=== PATIENT | female | born 1970 | race Two or more races ===

== ENCOUNTER → 2018-09-19 | Outpatient (CLI) | payer OTHER ==
[~2018-09-19] MED LIST: LISI10TA2 PO; METF500T16 PO; NORE0.355 PO; OXYC1TAB15 PO
[2018-09-19 15:57] LABS: BILIRUBIN,URINE NEGATIVE (NEG); CLARITY,URINE CLEAR; COLOR,URINE YELLOW; NITRITE,URINE NEGATIVE (NEG); PROTEIN,URINE NEGATIVE (NEG-TRACE); UROBILINOGEN,URINE 0.2 mg/dL (0.2 mg/dL)
[2018-09-19 15:59] LABS: BASO # 0.1 x10^3/uL (0.0-0.2); BASO % 1 % (0-3); EOS # 0.1 x10^3/uL (0.0-0.7); EOS % 2 % (0-3); HEMATOCRIT 41.1 % (36.0-47.0); HEMOGLOBIN 13.8 g/dL (12.0-15.5); LYMPH # 3.1 x10^3/uL (1.0-4.8); LYMPH % 33 % (24-48); MEAN CORPUSCULAR HEMOGLOBIN 30 pg (25-35); MEAN CORPUSCULAR HGB CONC 34 g/dL (31-37); MEAN CORPUSCULAR VOLUME 90 fL (79-100); MONO # 0.5 x10^3/uL (0.0-1.1); MONO % 6 % (0-9); NEUT # 5.5 x10^3uL (1.8-7.7); NEUT % 59 % (31-73); PLATELET COUNT 312 x10^3/uL (140-400); RED BLOOD COUNT 4.58 x10^6/uL (3.50-5.40); RED CELL DISTRIBUTION WIDTH 12.9 % (11.5-14.5); WHITE BLOOD COUNT 9.3 x10^3/uL (4.0-11.0)
[2018-09-19 16:14] LABS: SQUAMOUS EPITHELIAL CELL,UR MANY /LPF
[2018-09-19 16:15] LABS: BACTERIA,URINE MANY /HPF (0-FEW); RBC,URINE OCC /HPF (0-2)
[2018-09-19 16:17] LABS: ALBUMIN 3.9 g/dL (3.4-5.0); CALCIUM 8.8 mg/dL (8.5-10.1); CREATININE 0.8 mg/dL (0.6-1.0); GFR 76.6; POTASSIUM 3.7 mmol/L (3.5-5.1); TOTAL BILIRUBIN 0.7 mg/dL (0.2-1.0); TOTAL PROTEIN 7.7 g/dL (6.4-8.2)
--- NOTE | 2018-09-19 16:33 | RAD ---
CHEST PA LATERAL History: PRE OP CXR, HX OF HYPERTENTION Comparison: None. Findings: The cardiomediastinal silhouette is normal. Pulmonary vasculature is normal. The lungs are clear. No pleural effusion or pneumothorax is seen. There is no acute bone abnormality. IMPRESSION: No acute cardiopulmonary process. Electronically signed by: Dm Farrell MD (09/19/2018 4:30 PM) [facility]
--- NOTE | 2018-09-19 16:34 | EKG ---
[facility] [address] [place] [address] Test Date: 2018-09-19 Test Time: 16:30:23 Pat Name: BERNICE GREGG Department: Room: Gender: F Metallurgical Or Materials Technician: TIAN : 1970 Requested By: NEHA PARTIDA Order Number: [id number] Reading MD: Acosta Hall MD Measurements Intervals [place] Rate: 90 P: 26 [place]: 134 QRS: -4 QRSD: 84 T: 11 QT: 372 QTc: 459 Interpretive Statements SINUS RHYTHM Electronically Signed On 09-20-2018 11:51:05 CDT by Acosta Hall MD
--- NOTE | 2018-09-24 18:22 | NUR ---
FAXED PRE - OP TEST REPORTS TO 'S OFFICE FOR REVIEW 09/20/2018 AT 4634 WITH A NOTE THAT EKG REPORT WAS REVIEWED BY ALMA CANELA RN,ANESTHESIA TEAM AND WAS OKAY. URINE CULTURE'S FINAL REPORT WAS FAXED TO 'S OFFICE 09/21/2018 AT 7182.
== END | disposition home or self-care (01) ==
LOC: SURGPAT 15:21
PROVIDERS: ATTEND Obstetrics & Gynecology
DX: Z01.818 Encounter for other preprocedural examination (principal); I10 Essential (primary) hypertension
CPT/HCPCS: 36415; 71046; 80053; 81001; 85025; 87086; 93005

== ENCOUNTER 2018-09-26 05:47 | Observation (INO) | payer OTHER ==
[2018-09-26] VITALS (7 sets, daily range): BP systolic 107–113; BP diastolic 67–73
[~2018-09-26] VITALS: Ht 165.1 cm; Wt 106.6 kg
[~2018-09-26 05:47] MED LIST changes: +BUPIVACAINE-EPI 0.25%-1:200000 MPF 30 ML VIAL. ONE; +ESTROGENS, CONJ VAGINAL CREAM 30GM TUBE. ONE
[2018-09-26] MEDS ORDERED: IV RINGERS,LACTATED 1000ML 1,000 ML IV SCH ×2 (06:06→09:49)
[2018-09-26] MEDS ORDERED: MIDAZOLAM HCL/PF 2 MG/2 ML VIAL. IV PRN (06:15)
[2018-09-26] MEDS ORDERED: fentaNYL PF VIAL 100 MCG/2 ML VIAL IV PRN ×4 (06:15→10:00)
[2018-09-26] MEDS ORDERED: LIDOCAINE 1% PF 2 ML VIAL. ID PRN ×2 (06:15→10:00)
[2018-09-26] MEDS ORDERED: LIDOCAINE 2% PF 5 ML VIAL. ONE (07:00)
[2018-09-26] MEDS ORDERED: ONDANSETRON PF 4 MG/2 ML VIAL. ONE (07:00)
[2018-09-26] MEDS ORDERED: INDIGOTINDISULFONATE SODIUM 40 MG/5 ML AMPUL. IV ONE (07:00)
[2018-09-26] MEDS ORDERED: PROPOFOL 20 ML IV ONE (07:00)
[2018-09-26] MEDS ORDERED: DEXAMETHASONE SOD PHOS 20 MG/5 ML VIAL. ONE (07:00)
[2018-09-26] MEDS ORDERED: ROCURONIUM 50 MG/5 ML VIAL. ONE (07:00)
[2018-09-26] MEDS ORDERED: MIDAZOLAM HCL/PF 2 MG/2 ML VIAL. ONE (07:19)
[2018-09-26] MEDS ORDERED: fentaNYL PF VIAL 100 MCG/2 ML VIAL ONE ×2 (07:20→09:12)
[2018-09-26 07:23] LABS: U PREG PATIENT NEGATIVE (NEG)
[2018-09-26] MEDS ORDERED: KETOROLAC 30 MG/ML INJ FOR OR. INJ ONE (07:53)
[2018-09-26] MEDS ORDERED: GLYCOPYRROLATE 1 MG/5 ML VIAL. ONE (08:35)
[2018-09-26] MEDS ORDERED: NEOSTIGMINE METHYLSULFATE 5 MG/5 ML SYRINGE. ONE (08:35)
[2018-09-26] MEDS ORDERED: SEVOFLURANE 61 TO 120 MINUTES. IH ONE (08:53)
[2018-09-26] MEDS: LISINOPRIL 10 MG TABLET PO SCH (09:00)
[2018-09-26] MEDS ORDERED: diphenhydrAMINE 50 MG/ML VIAL IV PRN (09:30)
[2018-09-26] MEDS ORDERED: MAG HYDROX/ALUMINUM HYD/SIMETH 30 ML ORAL.SUSP PO PRN (09:30)
[2018-09-26] MEDS ORDERED: 0.9 % SODIUM CHLORIDE 10 ML DISP.SYRIN. IV PRN (09:30)
[2018-09-26] MEDS ORDERED: oxyCODONE/APAP 5/325 1 TAB TABLET PO PRN (09:30)
[2018-09-26] MEDS ORDERED: SIMETHICONE 80 MG TAB.CHEW PO PRN (09:30)
[2018-09-26] MEDS ORDERED: LACTULOSE 20 GM/30 ML SOLUTION. PO PRN (09:30)
[2018-09-26] MEDS ORDERED: ZOLPIDEM 5 MG TABLET. PO PRN (09:30)
[2018-09-26] MEDS ORDERED: MORPHINE SULFATE 4 MG/ML VIAL. IV PRN (09:30)
[2018-09-26] MEDS ORDERED: CALCIUM CARBONATE 500 MG TAB.CHEW PO PRN (09:30)
[2018-09-26] MEDS ORDERED: ONDANSETRON PF 4 MG/2 ML VIAL. IV PRN ×2 (09:30→10:00)
[2018-09-26] MEDS ORDERED: METOCLOPRAMIDE HCL 10 MG/2 ML VIAL. IV PRN (09:30)
[2018-09-26] MEDS ORDERED: diphenhydrAMINE HCL 25 MG CAPSULE PO PRN (09:30)
[2018-09-26] MEDS ORDERED: KETOROLAC 30 MG/ML VIAL. IV PRN (09:30)
[2018-09-26] MEDS ORDERED: NALOXONE 0.4 MG/ML VIAL. IV PRN (09:30)
[2018-09-26] MEDS ORDERED: MAGNESIUM HYDROXIDE 2,400 MG/30 ML ORAL.SUSP. PO PRN (09:30)
--- NOTE | 2018-09-26 09:35 | PDOC ---
BRIEF OPERATIVE NOTE Date: Sep 26, 2018 Pre-Op Diagnosis menorrhagia, dysmenorrhea, enlarged fibroid uterus Post-Op Diagnosis same Procedure Performed LAVH/BSO Surgeon Dr. Kennedi Partida Workers' Compensation Claims Examiner Siomna Barbosa Anesthesiologist Dr. Glynn Anesthesia Type: General Blood Loss 50cc IV Fluid 900cc Urine Output 75cc clear Specimens Obtained cervix, uterus, bilateral tubes and ovaries Findings enlarged fibroid uterus, mild bladder adhesions from previous c/s, small cyst on left ovary, normal bilateral tubes Complications none Operative Note [id number] KENNEDI PARTIDA MD Sep 26, 2018 09:35
[2018-09-26] MEDS ORDERED: MORPHINE SULFATE 2 MG/ML VIAL. IV PRN (10:00)
[2018-09-26] MEDS ORDERED: HYDROmorphone 2 MG/ML VIAL IV PRN (10:00)
[2018-09-26] MEDS ORDERED: PROCHLORPERAZINE 10 MG/2 ML VIAL. IV PRN (10:00)
--- NOTE | 2018-09-26 10:17 | OP ---
DATE OF SURGERY: 09/26/2018 PREOPERATIVE DIAGNOSES: Menorrhagia, dysmenorrhea, enlarged fibroid uterus. POSTOPERATIVE DIAGNOSES: Menorrhagia, dysmenorrhea, enlarged fibroid uterus. PROCEDURE: Laparoscopic-assisted vaginal hysterectomy, bilateral salpingo-oophorectomy. SURGEON: Neha Alvarez MD FLOOR SWEEPER: Ilsa Bishop. ANESTHESIOLOGIST: Dr. Glynn. ANESTHESIA: General. URINE OUTPUT: 75 mL clear via Rangel catheter. IV FLUIDS: 900 mL of crystalloid. ESTIMATED BLOOD LOSS: 50 mL. SPECIMENS: Cervix, uterus, bilateral tubes and ovaries. FINDINGS: A mildly enlarged fibroid uterus. Mild bladder adhesions from prior section, small cyst on the left ovary. Normal bilateral tubes. COMPLICATIONS: None. DESCRIPTION OF PROCEDURE: This patient was taken to the operating room where general anesthesia was placed. The patient was placed in a dorsal lithotomy position in [facility]. The patient's abdomen and vagina were prepped and draped in the normal sterile fashion. A Rangel catheter was inserted under sterile technique. Upon my arrival, a timeout was performed where everything was agreed upon, and she had already received her IV antibiotics. At this point, a bivalve speculum was placed in the patient's vagina. A single-tooth tenaculum was used to grasp the anterior lip of the cervix. A 10 mL of 0.25% Marcaine with epinephrine was used to circumferentially inject around the cervix for both hemodissection and hemostatic purposes later. The Valtchev uterine manipulator was placed through the endocervical os, locked on the single tooth tenaculum and the bivalve speculum was then removed. Top gloves were discarded and changed. Attention was then turned to the abdomen, where a supraumbilical skin incision was placed. A curved Juliette was used to dissect through the subcuticular layer to the fascia. The 5 mm Visiport was used to directly into the abdominal cavity. Opening patient pressure was 5 mmHg. Carbon dioxide gas was used to then appropriately insufflate the abdominal cavity to maintain a pressure of 15 mmHg. Direct abdominal placement was confirmed via the laparoscope. Overhead lights were dimmed. The patient was placed in Trendelenburg position. At this point, the left lower quadrant and right lower quadrant ports were placed after transilluminating the abdomen, finding an area clear of any vasculature. It was all clear on the inside. No adhesive disease present, making a small incision and placing the 5 mm disposable blunt trocar through without difficulty. Both of these were filled with 4-5 mL of air in the trocar cuff. Once this was done, the camera was moved to one of the lateral ports to look at the umbilical port, and so this one was pushed in further and a 4-5 mL of air was placed in this trocar cuff as well. The camera was moved back to midline. The left tube and ovary were elevated. The left ureter was seen coursing kind of high on the mid area, but definitely below the IP ligament and ovary where we were going to be, but I definitely identified it. I stayed high on the IP ligament, right under the ovary, cauterizing and cutting with the LigaSure, going over to the uterus and then down through the round as well on this side, right on the uterus. Once this was done, this was done exactly the same on the right side. The ureter was very low on the right side and in a normal position low. So staying high on the IP ligament just under the ovary, cauterizing and cutting again taking it over, getting the tube and ovary to the uterus and get the round ligament on this side. Once the round ligament was done, I started the bladder flap, and it was elevated with the [place] in front, while the uterus was pushed cephalad and the monopolar hook was used to sharply take down the bladder flap. There were some mild adhesions unguessing from her prior section, but it did come down very nicely in the front. Once the bladder was down, the LigaSure was used to cauterize the patient's right uterine vessels and then hugging the cervix and going down through the cardinal and broad ligaments to the level of the uterosacral. Once we were through the round on the left, I stayed right on the cervix, tagged it and got the uterine vessels on the left as well and then staying vertical going down through the cardinal and broad ligaments. The uterus was completely free front and back. The bladder was down and it was completely blanched. So at this point, all instruments were removed from the abdomen and attention was turned vaginally. The single tooth and Valtchev were removed. A weighted speculum was placed in the patient's vagina. The legs were elevated. Thyroid Manuela clamps were placed on the anterior and posterior lips of the cervix respectively. A scalpel was used to make a circumferential incision in the cervix. An open Ray-Ben 4 x 4 was used to gently push up the anterior bladder peritoneum. The cervix was elevated, and the posterior cul-de-sac was sharply entered with the curved Mas scissors. A #0 Vicryl stitch was used to secure the posterior peritoneum to the vaginal cuff here in the posterior cuff, and it was tagged with a curved Juliette clamp. The needle was cut and passed off. The short weighted speculum was removed and replaced with the long weighted vaginal Candelario speculum in the posterior cul-de-sac. Curved Beatriz clamps x 2 were placed on the patient's left uterosacral ligament where they were doubly clamped with curved Heaneys, cut with Mas scissors and suture ligated x 2 with 0 Vicryl. Second one was taken through the vaginal cuff, securing uterosacral ligament to the vaginal cuff and it was tagged with a straight Juliette clamp. This was done exactly the same on the patient's right side, double clamping the uterosacrals with curved Beatriz's, cutting with Mas scissors, suture ligating x 2 with 0 Vicryl, taking the second one through the vaginal cuff, securing uterosacral ligament to the vaginal cuff and tagging it with a straight Juliette clamp. Once this was done, the right angle clamp was taken around the remaining pedicle on the left side, and the vaginal LigaSure was used to cauterize and cut it. This was done exactly the same on the right, taking the right angle Mixter clamp around it and then cauterizing and cutting with the vaginal LigaSure. There was a small pedicle left in the front that I used the cautery and the Metzenbaum scissors on and then it was completely released. Cervix, uterus, bilateral tubes and ovaries were delivered in total and passed off for permanent pathology. A sponge stick was used to examine the pedicles, they appear to be dry and hemostatic. A long Allis was used to grasp the anterior bladder peritoneum. The long weighted vaginal Candelario speculum was removed from the posterior cul-de-sac and replaced with the short weighted vaginal speculum. 2-0 Vicryl was taken through the anterior bladder peritoneum, left uterosacral ligament, posterior peritoneum and right uterosacral ligament, thus closing the peritoneum in a pursestring like fashion. The right and left uterosacral tags were clipped at this point. A full length 2-0 Vicryl was used to close the vaginal cuff in an anterior to posterior running locked fashion and tied to that posterior vaginal cuff tag. An imbricating stitch was placed in the middle. Excellent hemostasis was assured and achieved and the cuff looked good. So at this point, all instruments were removed. All sponge, lap and needle counts were correct x 2 by OR personnel. All gloves were discarded and changed. Attention was turned back above for a second look where the patient was placed back in Trendelenburg. There was complete hemostasis. There was not any bleeding. Copious irrigation confirmed this. Right and left pericolic gutters were clear. The cuff was hemostatic. Tisseel was placed over the cuff with excellent results. The air was released from both of the trocar sites on the right and left lower quadrant ports. These were removed under direct visualization. These too were hemostatic. Gas was then released from the umbilical port. The air was released from the trocar cuff as well, and it was removed. All three port sites were being closed with 4-0 nylon at the skin and injected with local. The patient was awakened from anesthesia, extubated and brought to recovery room in stable condition. NEHA ALVAREZ MD DR: JULIANA/milton JOB#: [id number] / [id number]
[2018-09-26] MEDS: HYDROcodone/APAP 5/325MG 1 TAB TABLET PO PRN ×2 (13:25→19:48)
[2018-09-27 00:41] VITALS: BP 100/65
[2018-09-27] MEDS: HYDROcodone/APAP 5/325MG 1 TAB TABLET PO PRN ×2 (00:47→07:30)
[2018-09-27 06:30] VITALS: BP 124/69
[2018-09-27 08:01] LABS: CALCIUM 8.2 mg/dL (8.5-10.1); CREATININE 1.1 mg/dL (0.6-1.0); POTASSIUM 4.4 mmol/L (3.5-5.1)
[2018-09-27] MEDS: LISINOPRIL 10 MG TABLET PO SCH (09:00)
[2018-09-27 11:52] VITALS: BP 102/68
--- NOTE | 2018-09-27 12:56 | PDOC ---
SURGICAL PROGRESS NOTE Subjective Doing well without complaints. Voiding well without catheter. Tolerating regular diet. ambulating well. All questions answered Vital Signs Vital Signs Date Time Temp Pulse Resp B/P (MAP) Pulse Ox O2 Delivery O2 Flow Rate FiO2 09/27/18 11:52 85 18 102/68 (79) 98 Room Air 09/27/18 06:30 97.9 97.9 09/26/18 10:03 10 I&O Intake and Output 09/27/18 06:59 Intake Total 2700 ml Output Total 1225 ml Balance 1475 ml Intake Oral 1650 ml IV Total 1050 ml Output Urine Total 1175 ml Estimated Blood Loss 50 ml PATIENT HAS A VANG: No General: Alert, Oriented X3, Cooperative, No acute distress HEENT: Atraumatic Heart: Regular rate Abdomen: Soft, No tenderness, Other (all port sites c/d/i) Extremities: No clubbing, No cyanosis, No edema, No tenderness/swelling Skin: No rashes, No breakdown Neuro: Normal speech Psych/Mental Status: Mental status NL, Mood NL Labs Laboratory Tests Test 09/26/18 06:30 09/27/18 07:27 Urine Test Negative (NEG) Hematocrit 37.3 % (36.0-47.0) Sodium Level 136 mmol/L (136-145) Potassium Level 4.4 mmol/L (3.5-5.1) Chloride Level 100 mmol/L (98-107) Carbon Dioxide Level 27 mmol/L (21-32) Anion Gap 9 (6-14) Blood Urea Nitrogen 17 mg/dL (7-20) Creatinine 1.1 mg/dL (0.6-1.0) Estimated GFR (Cockcroft-Gault) 53.0 Glucose Level 106 mg/dL (70-99) Calcium Level 8.2 mg/dL (8.5-10.1) Laboratory Tests Test 09/27/18 07:27 Hematocrit 37.3 % (36.0-47.0) Sodium Level 136 mmol/L (136-145) Potassium Level 4.4 mmol/L (3.5-5.1) Chloride Level 100 mmol/L (98-107) Carbon Dioxide Level 27 mmol/L (21-32) Anion Gap 9 (6-14) Blood Urea Nitrogen 17 mg/dL (7-20) Creatinine 1.1 mg/dL (0.6-1.0) Estimated GFR (Cockcroft-Gault) 53.0 Glucose Level 106 mg/dL (70-99) Calcium Level 8.2 mg/dL (8.5-10.1) I have reviewed the following labs, vitals, nursing Cardiovascular: No pertinent hx Pulmonary: No pertinent hx GI: No pertinent hx Heme/Onc: No pertinent hx Psych: No pertinent hx Infectious disease: No pertinent hx Endocrine: Other (PCOS) Assessment/Plan POD #1 s/p LAVH/BSO routine po care NPV x 6 weeks light/limited x 2 weeks percocet already has at home NO driving on narcotic pain meds keep scheduled office visit next week ok for OTC ibuprofen, prn call or return sooner for any other questions or concerns not limited to but including pain unrelieved with pain meds, increased or unexplained vaginal bleeding or T>100.4 NEHA PARTIDA MD Sep 27, 2018 12:56
--- NOTE | 2018-09-27 13:00 | PDOC3 ---
Discharge Summary Visit Information Date of Admission: Sep 26, 2018 Date of Discharge: Sep 27, 2018 Final Diagnosis enlarged fibroid uterus with menorrhagia and dysmenorrhea Brief Hospital Course Allergies Allergies Coded Allergies Type Severity Reaction Last Updated Verified No Known Drug Allergies 09/26/18 No Vital Signs Vital Signs Date Time Temp Pulse Resp B/P (MAP) Pulse Ox O2 Delivery O2 Flow Rate FiO2 09/27/18 11:52 85 18 102/68 (79) 98 Room Air 09/27/18 06:30 97.9 97.9 09/26/18 10:03 10 Lab Results Laboratory Tests Test 09/26/18 06:30 09/27/18 07:27 Urine Test Negative (NEG) Hematocrit 37.3 % (36.0-47.0) Sodium Level 136 mmol/L (136-145) Potassium Level 4.4 mmol/L (3.5-5.1) Chloride Level 100 mmol/L (98-107) Carbon Dioxide Level 27 mmol/L (21-32) Anion Gap 9 (6-14) Blood Urea Nitrogen 17 mg/dL (7-20) Creatinine 1.1 mg/dL (0.6-1.0) Estimated GFR (Cockcroft-Gault) 53.0 Glucose Level 106 mg/dL (70-99) Calcium Level 8.2 mg/dL (8.5-10.1) Laboratory Tests Test 09/27/18 07:27 Hematocrit 37.3 % (36.0-47.0) Sodium Level 136 mmol/L (136-145) Potassium Level 4.4 mmol/L (3.5-5.1) Chloride Level 100 mmol/L (98-107) Carbon Dioxide Level 27 mmol/L (21-32) Anion Gap 9 (6-14) Blood Urea Nitrogen 17 mg/dL (7-20) Creatinine 1.1 mg/dL (0.6-1.0) Estimated GFR (Cockcroft-Gault) 53.0 Glucose Level 106 mg/dL (70-99) Calcium Level 8.2 mg/dL (8.5-10.1) Brief Hospital Course Ms. Valdivia is a 48 old female who presented with symtomatic fibroid uterus with menorrhagia and dysmenorrhea desiring definitive therapy. She underwent and LAVH/BSO without complication yesterday. She has had an unremarkable postoperative course and is tolerating a regular diet, voiding without catheter , scant vb, ambulating well and is desiring to go home. Discharge Information Condition at Discharge: Improved Follow Up: Weeks Disposition/Orders: D/C to Home Scheduled Lisinopril (Lisinopril) 10 Mg Tablet, 10 MG PO DAILY for FOR HYPERTENSION, #30 Ref 0 (Reported) Entered as Reported by: CARMELA OVERTON on 09/19/181527 Last Action: Continued on 09/26/18728 by NEHA PARTIDA Metformin Hcl (Metformin Hcl) 500 Mg Tablet, 500 MG PO BIDWMEALS for ANTI- DIABETIC, Ref 0 (Reported) Entered as Reported by: CARMELA OVERTON on 09/19/181527 Last Action: HELD on 09/26/18728 by NEHA PARTIDA Scheduled PRN Norethindrone (Vaishali) 0.35 Mg Tablet, 0.35 MG PO DAILY PRN for ORDERED, ( Reported) Entered as Reported by: CARMELA OVERTON on 09/19/181527 Last Action: HELD on 09/26/18728 by NEHA PARTIDA Oxycodone/Apap 5-325 (Percocet 5-325 Mg Tablet ) 1 Each Tablet, 1 TAB PO PRN Q6HRS PRN for PAIN, Ref 0 (Reported) Entered as Reported by: CARMELA OVERTON on 09/19/181529 Last Action: HELD on 09/26/18728 by NEHA PARTIDA Patient Instructions Patient Instructions POD #1 s/p LAVH/BSO routine po care NPV x 6 weeks light/limited x 2 weeks percocet already has at home NO driving on narcotic pain meds keep scheduled office visit next week ok for OTC ibuprofen, prn call or return sooner for any other questions or concerns not limited to but including pain unrelieved with pain meds, increased or unexplained vaginal bleeding or T>100.4 NEHA PARTIDA MD Sep 27, 2018 13:00
[2018-09-27 14:49] VITALS: BP 106/70
--- NOTE | 2018-09-28 14:06 | PATHOLOGY ---
[facility] Accession Number: [id number] . 01 Material submitted: . uterus - CERVIX, UTERUS, OVARIES, TUBES . 01 Clinical history: . Abnormal bleeding . 02 Diagnosis: Uterus, bilateral ovaries and fallopian tubes, hysterectomy and bilateral salpingo-oophorectomy: - Cervix with mild chronic inflammation, squamous metaplasia, and nabothian cysts. - Proliferative phase endometrium. - Myometrium with leiomyomata, up to 2.9 cm. - Serosal surface with no pathologic diagnosis. - Right and left ovaries and fallopian tubes with no significant histopathologic diagnosis. (SKM/db; 09/28/2018) LBQ/09/28/2018 . 02 Electronically signed: . Kendall Slade MD, Pathologist NPI- [id number] . 01 Gross description: . The specimen is received in formalin, labeled "Valdivia, Brenda, cervix, uterus, ovaries, tubes" and consists of a 148 g distorted uterus with attached cervix measuring 11.3 x 6.6 x 4.9 cm. Attached are bilateral adnexa with the right (9 g) consisting of a fimbriated fallopian tube (5.0 cm in length and 0.5 cm in diameter attached to a acevedo and cerebriform ovary (2.3 x 1.8 x 1.3 cm). The left adnexa consists of a fimbriated fallopian tube (5.8 cm in length and up to 0.6 cm in diameter) attached to a cerebriform, acevedo, and cystic ovary (2.4 x 2.3 x 1.2 cm). The uterine serosa is pink-acevedo with multifocal hemorrhage and subserosal nodules consistent with the uterine distortion. The 1.5 cm slitlike cervical os is surrounded by glistening pink-acevedo ectocervical mucosa. The specimen is bivalved to reveal a corrugated endocervical canal measuring 2.6 cm in length. The endometrial cavity is distorted measuring 4.5 cm in length and up to 3.2 cm in diameter with the distortion caused by multiple submucosal, intramural, and subserosal nodules measuring up to 2.9 cm. The endometrium is pink-acevedo measuring 0.1 cm. The cervix reveals nabothian cysts measuring up to 0.6 cm. The myometrium is pink-acevedo measuring up to 3.0 cm with the nodules showing homogeneous white, whorled cut surfaces without hemorrhage, necrosis, or calcifications. . Both the right and left are rated fallopian tubes are purple-mccartney, smooth, and shiny. Sectioning each reveals a well-defined central lumen and with the left tube having a hemorrhagic paratubal cystic structure measuring up to 0.9 cm. Sectioning the right ovary reveals corpora albicantia and lutea. Sectioning the left ovary reveals 2 clear fluid filled uniloculated cysts measuring 0.7 cm and 1.1 cm. Also present are corpora albicantia and lutea. Slider Assembler sections are submitted as follows: . A1: Anterior cervix A2: Posterior cervix A3: Anterior endomyometrium A4: Posterior endomyometrium A5: Nodules A6: Right fallopian tube A7: Right ovary A8: Left fallopian tube A9: Left ovary (SDY; 09/27/2018) SYU/SYU . 02 Pathologist provided ICD-10: N72, N88.8, D25.9, N93.9 . 02 CPT . 571140 Specimen Comment: A courtesy copy of this report has been sent to Specimen Comment: [phone]. Specimen Comment: Report sent to Performed at: 01 [facility] [address], [place], [place] [id number] MD Miguel Dave MD Phone: [phone] Performed at: 02 [facility] [address] [place], [place] [id number] MD Storm Rivero MD Phone: [phone]
== END 2018-09-27 14:30 | disposition home or self-care (01) ==
LOC: SURG 05:47 → EDUNIT# 07:30 → 3 NORTH 09:24
PROVIDERS: ADMIT Obstetrics & Gynecology; ATTEND Obstetrics & Gynecology
DX: N92.0 Excessive and frequent menstruation with regular cycle (principal); N94.6 Dysmenorrhea, unspecified; N93.8 Other specified abnormal uterine and vaginal bleeding; Z98.891 History of uterine scar from previous surgery; E28.2 Polycystic ovarian syndrome; D25.9 Leiomyoma of uterus, unspecified; I10 Essential (primary) hypertension
CPT/HCPCS: 36415; 58552; 80048; 81025; 85014; 86850; 86900; 86901; 88307; A7015; G0378; G0379; J0780; J1100; J1885; J2001; J2250; J2405; J2704; J2710; J3010; J3490; J7030; J7120